=== PATIENT | male | born 1995 | race Caucasian/White ===

== ENCOUNTER 2017-09-04 17:02 | Emergency (ER) | payer BC, OTHER ==
[2017-09-04 17:11] VITALS: BP 132/89; PULSE 72; TEMP 98.6; BMI 20.9
--- NOTE | 2017-09-04 18:30 | PDOC ---
Suture Removal/Wound Check HPI - History of Present Illness Chief Complaint: Suture/Staple Removal(Here) Stated Complaint: SUTURE REMOVAL Time Seen by Provider: 09/04/17 17:54 History Source: Yes: Patient Exam Limitations: Yes: No Limitations Treated at: [facility] ED - Previous ED Treatment Type of procedure performed on last visit: Yes: Laceration Repair Tetanus Immunization: Yes: Up to Date - Onset of Previous Treatment Date of Occurence: 08/23/17 Past History - Past Medical History Allergies/Adverse Reactions: Allergies Allergy/AdvReac Type Severity Reaction Status Date / Time amoxicillin Allergy Verified 09/04/17 17:08 Home Medications: Ambulatory Orders Buprenorphine HCl/Naloxone HCl [Suboxone 4 mg-1 mg Sl Film] 1 each SL DAILY Escitalopram Oxalate [Lexapro -] 10 mg PO DAILY 08/23/17 Anemia: Yes - Surgical History Appendectomy: Yes - Immunization History Immunization Up to Date: Yes - Suicide/Smoking/Psychosocial Hx Smoking History: Current every day smoker Number of Cigarettes Smoked Daily: 10 Information on smoking cessation initiated: No Hx Alcohol Use: No Drug/Substance Use Hx: No Substance Use Type: Marijuana, Opiates Suture Removal/Wound Check PE - Physical Exam Laceration/Wound Check Symptoms: reports: None Current Severity Level: None Maximum Severity Level: None Pain Localization: None Location of Laceration/Wound: right: Lip *Review of Systems - Review of Systems Able to Perform ROS?: Yes Constitutional: No: Symptoms Reported HEENTM: No: Symptoms Reported Respiratory: No: Symptoms reported Cardiac (ROS): No: Symptoms Reported ABD/GI: No: Symptoms Reported : No: Symptoms Reported Musculoskeletal: No: Symptoms Reported Integumentary: No: Symptoms Reported Neurological: No: Symptoms reported Medical Decision Making - Medical Decision Making 09/04/17 18:26 A/P: This is a 22-year-old man without significant past medical history who had one suture placed in his right upper lip August 23 of this year. He is here today to have suture removed. Wound is well approximated and completely closed. No discharge or drainage from the site no redness and/or tenderness to right upper lip. One suture removed with out incident. *DC/Admit/Observation/Transfer Diagnosis at time of Disposition: Encounter for removal of sutures - Discharge Dispostion Disposition: HOME Condition at time of disposition: Stable Admit: No - Referrals Referrals: Lawrence Greene MD [Primary Care Provider] - - Patient Instructions Additional Instructions: Return to emergency department for any worsening symptoms or for any concerns. Thank you for choosing us to provide your emergent healthcare needs.
== END 2017-09-04 18:32 | disposition home or self-care (01) ==
LOC: JERFT 17:02
DX: Z48.02 Encounter for removal of sutures (principal)
CPT/HCPCS: 99281-25

== ENCOUNTER 2020-10-06 09:34 | Inpatient (IN) | payer OTHER ==
[2020-10-06] MEDS ORDERED: NALOXONE HCL 0.4 MG/ML VIAL IVPUSH STA (09:37)
[2020-10-06] MEDS ORDERED: NALOXONE HCL 0.4 MG/ML VIAL ONE (09:45)
[2020-10-06 10:18] LABS: BASO % 0.6 % (0-2.0); EOS % 0.7 % (0-4.5); HEMOGLOBIN 12.3 GM/dL (11.7-16.9); LYMPH % 21.9 % (8-40); MCH 32.2 pg (25.7-33.7); MCHC 33.3 g/dl (32.0-35.9); MEAN CELL VOLUME 96.7 fl (80-96); MEAN PLT VOLUME 9.9 fl (7.5-11.1); NEUT % 66.8 % (42.8-82.8); PLATELET COUNT 264 K/MM3 (134-434); RBC 3.82 M/mm3 (4.00-5.60); RDW 13.9 % (11.9-15.9); WHITE BLOOD COUNT 6.4 K/mm3 (4.0-10.0)
[2020-10-06 10:26] LABS: INR 0.91 (0.83-1.09); PROTHROMBIN TIME (PATIENT) 11.2 SEC (9.7-13.0)
[2020-10-06 10:29] LABS: ACTIVATED PTT 31.9 SECONDS (25.2-36.5)
[2020-10-06 10:35] LABS: CHLORIDE 105 mmol/L (98-107); SODIUM 138 mmol/L (136-145)
[2020-10-06 10:37] LABS: ALBUMIN 3.8 g/dl (3.4-5.0); CALCIUM 9.2 mg/dL (8.5-10.1); CO2 33 mmol/L (21-32); GLUCOSE,RANDOM 87 mg/dL (74-106)
[2020-10-06 10:40] LABS: CREATININE 0.9 mg/dL (0.55-1.3)
[2020-10-06 10:42] LABS: BILIRUBIN,TOTAL 0.5 mg/dL (0.2-1); TOT PROT 7.8 g/dl (6.4-8.2)
[2020-10-06 10:43] LABS: ALK PHOS 146 U/L (45-117)
[2020-10-06 10:45] LABS: ANION GAP 1 MMOL/L (8-16); SGOT/AST 309 U/L (15-37); SGPT/ALT 178 U/L (13-61)
[2020-10-06 10:47] LABS: POTASSIUM 7.9 mmol/L (3.5-5.1)
[2020-10-06 11:50] LABS: POTASSIUM 4.2 mmol/L (3.5-5.1)
[2020-10-06 11:51] LABS: CALCIUM 8.7 mg/dL (8.5-10.1)
[2020-10-06 11:52] LABS: ALBUMIN 3.5 g/dl (3.4-5.0); BLOOD UREA NITROGEN 10.6 mg/dL (7-18)
[2020-10-06 11:52] LABS: URINE APPEARANCE CLEAR; URINE BILIRUBIN NEGATIVE (NEGATIVE); URINE COLOR YELLOW; URINE GLUCOSE (UA) NEGATIVE (NEGATIVE); URINE KETONE NEGATIVE (NEGATIVE); URINE LEUK ESTERASE NEGATIVE (NEGATIVE); URINE NITRITE NEGATIVE (NEGATIVE); URINE PROTEIN NEGATIVE (NEGATIVE); URINE UROBILINOGEN 0.2 mg/dL (0.2-1.0)
[2020-10-06 11:55] LABS: CREATININE 0.8 mg/dL (0.55-1.3)
[2020-10-06 11:56] LABS: BILIRUBIN,TOTAL 0.3 mg/dL (0.2-1); TOT PROT 6.4 g/dl (6.4-8.2)
[2020-10-06 12:09] LABS: METHADONE, UR NEGATIVE ng/ml (CUTOFF=300); OPIATES, URI NEGATIVE ng/ml (CUTOFF=300); URINE BARBITURATES NEGATIVE ng/ml (CUTOFF=200); URINE BENZODIAZEPINES NEGATIVE ng/ml (CUTOFF=200)
[2020-10-06 12:10] LABS: PHENCYCLIDINE,URINE NEGATIVE ng/ml (CUTOFF=25)
[2020-10-06 12:16] LABS: COCAINE, UR NEGATIVE ng/ml (CUTOFF=300)
[2020-10-06 12:20] LABS: URINE AMPHETAMINES POSITIVE ng/ml (CUTOFF=500)
[2020-10-06] MEDS ORDERED: LACTATED RINGERS SOLUTION 1000 ML INFUS.BAG IV ONE ×2 (13:38→15:11)
[2020-10-06] MEDS ORDERED: SODIUM CHLORIDE 0.9% 500 ML INFUS.BAG IV ONE (13:38)
[2020-10-06] MEDS ORDERED: ATROPINE SO4 0.4 MG/1 ML VIAL IVPUSH ONE ×2 (15:10→17:22)
[2020-10-06] MEDS ORDERED: ATROPINE SULFATE 1 MG/10 ML DISP.SYRIN ONE (15:11)
[2020-10-06] MEDS ORDERED: LACTATED RINGERS SOLUTION 1,000 ML/1,000 ML INFUS.BAG IV SCH (17:15)
[2020-10-06] MEDS: SODIUM CHLORIDE 1,000 ML IV SCH (19:00)
[2020-10-06] MEDS ORDERED: LORazepam 2 MG/ML SDV VIAL IVPUSH PRN (19:20)
[2020-10-06] MEDS ORDERED: HALOPERIDOL LACTATE 5 MG/ML IM ONE (20:04)
[2020-10-06] MEDS ORDERED: LIDOCAINE HCL 2% JELLY (30 ML/TUBE) TP ONE (20:56)
[2020-10-06] MEDS: HEPARIN NA (PORCINE) 5,000 UNITS/ML 1ML VIAL SQ SCH (21:12)
[2020-10-06 21:22] LABS: CHLORIDE 108 mmol/L (98-107); POTASSIUM 5.5 mmol/L (3.5-5.1); SODIUM 144 mmol/L (136-145)
[2020-10-06 21:24] LABS: CALCIUM 8.6 mg/dL (8.5-10.1)
[2020-10-06 21:25] LABS: ALBUMIN 3.4 g/dl (3.4-5.0); ANION GAP 4 MMOL/L (8-16); BLOOD UREA NITROGEN 7.9 mg/dL (7-18); CO2 31 mmol/L (21-32); GLUCOSE,RANDOM 84 mg/dL (74-106)
[2020-10-06 21:27] LABS: BILIRUBIN,DIRECT 0.1 mg/dL (0.0-0.2)
[2020-10-06 21:28] LABS: CREATININE 0.7 mg/dL (0.55-1.3); SGOT/AST 393 U/L (15-37); SGPT/ALT 363 U/L (13-61)
[2020-10-06 21:29] LABS: BILIRUBIN,TOTAL 0.5 mg/dL (0.2-1); TOT PROT 6.4 g/dl (6.4-8.2)
[2020-10-06 21:31] LABS: ALK PHOS 140 U/L (45-117)
[2020-10-07] MEDS ORDERED: ATROPINE SO4 0.4 MG/1 ML VIAL IVPUSH ONE (00:20)
[2020-10-07] MEDS ORDERED: ATROPINE SULFATE 1 MG/10 ML DISP.SYRIN ONE (00:29)
[2020-10-07 02:41] LABS: POTASSIUM 4.7 mmol/L (3.5-5.1)
[2020-10-07 02:44] LABS: ALBUMIN 3.1 g/dl (3.4-5.0); BLOOD UREA NITROGEN 8.5 mg/dL (7-18); CALCIUM 8.2 mg/dL (8.5-10.1)
[2020-10-07 02:47] LABS: CREATININE 0.7 mg/dL (0.55-1.3)
[2020-10-07 02:49] LABS: BILIRUBIN,TOTAL 0.4 mg/dL (0.2-1)
[2020-10-07 07:07] LABS: POTASSIUM 4.9 mmol/L (3.5-5.1)
[2020-10-07 07:09] LABS: BASO % 0.9 % (0-2.0); CALCIUM 8.4 mg/dL (8.5-10.1); EOS % 1.4 % (0-4.5); HEMATOCRIT 34.4 % (35.4-49); HEMOGLOBIN 11.4 GM/dL (11.7-16.9); MCH 32.1 pg (25.7-33.7); MCHC 33.3 g/dl (32.0-35.9); MEAN CELL VOLUME 96.6 fl (80-96); MEAN PLT VOLUME 10.3 fl (7.5-11.1); NEUT % 54.7 % (42.8-82.8); PLATELET COUNT 247 K/MM3 (134-434); RBC 3.56 M/mm3 (4.00-5.60); RDW 14.3 % (11.9-15.9); WHITE BLOOD COUNT 4.9 K/mm3 (4.0-10.0)
[2020-10-07 07:10] LABS: ALBUMIN 3.1 g/dl (3.4-5.0); BLOOD UREA NITROGEN 8.3 mg/dL (7-18)
[2020-10-07 07:13] LABS: CREATININE 0.7 mg/dL (0.55-1.3); PHOSPHOROUS 3.5 mg/dL (2.5-4.9)
[2020-10-07 07:14] LABS: BILIRUBIN,TOTAL 0.5 mg/dL (0.2-1); TOT PROT 5.9 g/dl (6.4-8.2)
[2020-10-07 07:23] LABS: PROTHROMBIN TIME (PATIENT) 12.3 SEC (9.7-13.0)
[2020-10-07] MEDS: HEPARIN NA (PORCINE) 5,000 UNITS/ML 1ML VIAL SQ SCH ×2 (09:25→21:06)
[2020-10-07] MEDS: FAMOTIDINE 20 MG/50 ML IVPB 20 MG/50 ML MG IVPB SCH ×2 (11:00→21:06)
[2020-10-07] MEDS: SODIUM CHLORIDE 1,000 ML IV SCH ×2 (12:24→20:58)
[2020-10-07 12:46] LABS: ALBUMIN 3.2 g/dl (3.4-5.0); BILIRUBIN,TOTAL 0.6 mg/dL (0.2-1); CALCIUM 8.7 mg/dL (8.5-10.1); CREATININE 0.7 mg/dL (0.55-1.3); POTASSIUM 4.4 mmol/L (3.5-5.1); TOT PROT 5.9 g/dl (6.4-8.2)
[2020-10-07] MEDS ORDERED: LORazepam 2 MG/ML SDV VIAL IM PRN (13:48)
[2020-10-07] MEDS: NICOTINE 7 MG/24 HOURS TOPICAL PATCH TD SCH (15:18)
[2020-10-07 20:37] LABS: POTASSIUM 3.6 mmol/L (3.5-5.1)
[2020-10-07 20:40] LABS: CALCIUM 7.8 mg/dL (8.5-10.1)
[2020-10-07 20:41] LABS: ALBUMIN 2.8 g/dl (3.4-5.0); BLOOD UREA NITROGEN 7.9 mg/dL (7-18)
[2020-10-07 20:44] LABS: CREATININE 0.7 mg/dL (0.55-1.3)
[2020-10-07 20:46] LABS: BILIRUBIN,TOTAL 0.7 mg/dL (0.2-1); TOT PROT 5.4 g/dl (6.4-8.2)
[2020-10-07] MEDS ORDERED: HALOPERIDOL LACTATE 5 MG/ML IM ONE (23:27)
[2020-10-08] MEDS ORDERED: BUPRENORPHINE/NALOXONE 8 MG/2 MG FILM PACKET SL ONE (06:47)
[2020-10-08] MEDS ORDERED: PT OWN MED DRAWER 7, Y5N ONE ×3 (07:10→13:58)
[2020-10-08 07:21] LABS: BASO % 0.7 % (0-2.0); EOS % 1.1 % (0-4.5); HEMATOCRIT 31.4 % (35.4-49); HEMOGLOBIN 10.6 GM/dL (11.7-16.9); LYMPH % 35.4 % (8-40); MCH 32.3 pg (25.7-33.7); MCHC 33.9 g/dl (32.0-35.9); MEAN CELL VOLUME 95.4 fl (80-96); MEAN PLT VOLUME 9.9 fl (7.5-11.1); MONO % 9.5 % (3.8-10.2); NEUT % 53.3 % (42.8-82.8); PLATELET COUNT 251 K/MM3 (134-434); RBC 3.29 M/mm3 (4.00-5.60); RDW 13.6 % (11.9-15.9)
[2020-10-08 07:57] LABS: POTASSIUM 3.7 mmol/L (3.5-5.1)
[2020-10-08 08:03] LABS: ALBUMIN 2.7 g/dl (3.4-5.0); BLOOD UREA NITROGEN 6.8 mg/dL (7-18); CALCIUM 7.3 mg/dL (8.5-10.1); MAGNESIUM 1.7 mg/dL (1.8-2.4)
[2020-10-08 08:06] LABS: BILIRUBIN,TOTAL 0.6 mg/dL (0.2-1); CREATININE 0.6 mg/dL (0.55-1.3); PHOSPHOROUS 3.6 mg/dL (2.5-4.9)
[2020-10-08] MEDS: HEPARIN NA (PORCINE) 5,000 UNITS/ML 1ML VIAL SQ SCH ×2 (10:12→12:38)
[2020-10-08] MEDS: MAGNESIUM OXIDE 400 MG TABLET (FP) PO ONE ×2 (10:12→12:39)
[2020-10-08] MEDS: NICOTINE 7 MG/24 HOURS TOPICAL PATCH TD SCH (10:13)
[2020-10-08] MEDS: FAMOTIDINE 20 MG/50 ML IVPB 20 MG/50 ML MG IVPB SCH (10:13)
[2020-10-08 13:54] VITALS: TEMP 98
[2020-10-08 14:02] VITALS: BP 109/71; PULSE 61
[2020-10-08 14:40] VITALS: BMI 24.4
[2020-10-10 19:07] LABS: HEP B CORE AB, TOT Negative (Negative)
== END 2020-10-08 14:37 | disposition left against medical advice (07) | DRG 812 ==
LOC: JER 09:34 → JERBED 13:34 → JICU 18:18
PROVIDERS: ADMIT Internal Medicine; ATTEND Internal Medicine
PROC: [UNRECOGNIZED PROCEDURE] (principal; 2020-10-06)
PROC: HZ95ZZZ Pharmacotherapy for Substance Abuse Treatment, Naloxone (ICD-10-PCS; 2020-10-06)
DX: T50.994A Poisoning by other drugs, medicaments and biological substances, undetermined, initial encounter (principal); R00.1 Bradycardia, unspecified; I95.9 Hypotension, unspecified; E87.5 Hyperkalemia; R94.5 Abnormal results of liver function studies; D64.9 Anemia, unspecified; R41.82 Altered mental status, unspecified; I44.39 Other atrioventricular block; F19.10 Other psychoactive substance abuse, uncomplicated; F11.229 Opioid dependence with intoxication, unspecified; F11.222 Opioid dependence with intoxication with perceptual disturbance; F17.210 Nicotine dependence, cigarettes, uncomplicated; R33.0 Drug induced retention of urine; I95.2 Hypotension due to drugs; G92 Toxic encephalopathy
CPT/HCPCS: 36415; 70450-TC; 71045-TC-FY; 74018-TC-FY; 80053; 80061; 80074; 80076; 80307; 81003; 82550; 82553; 83721; 83735; 84100; 84439; 84443; 84484; 85025; 85610; 85730; 86704; 86706; 86707; 86708; 86709; 87340; 87522; 93005; 93010; 93970-TC; 99291; C9803; J1644; U0003